=== PATIENT | female | born 1945 | race Caucasian/White ===

== ENCOUNTER 2017-05-07 08:14 | Outpatient (CLI) | payer MEDICARE, OTHER ==
--- NOTE | 2017-05-07 13:28 | DEXA Report ---
DEXA SCAN: 05/07/2017 CLINICAL INDICATION: Osteoporosis. TECHNIQUE: Dual energy x-ray absorptiometry (DXA) was performed on a KS12 system. Regions measured are the AP spine, femoral neck, and, if needed, forearm. COMPARISON: None. In accordance with the International Society for Clinical Densitometry (ISCD) guidelines, data from previous exams may be reanalyzed using current recommendations and techniques. This is done to allow a more accurate basis for comparison with the current study. FINDINGS Data for the lumbar spine is as follows: REGION BMD (g/cm/cm) T-SCORE Z-SCORE L1 0.731 -3.3 -1.4 L2 0.756 -3.7 -1.8 L3 0.807 -3.3 -1.4 L4 0.882 -2.7 -0.7 TOTAL 0.800 -3.2 -1.2 NOTE: All evaluable vertebrae are used for classification. Data for the hip is as follows: REGION BMD (g/cm/cm) T-SCORE Z-SCORE Neck 0.640 -2.9 -0.9 TOTAL 0.716 -2.3 -0.5 NOTE: The femoral neck or total proximal femur, whichever is lowest, is used for classification. IMPRESSION: THE WHO CLASSIFICATION BASED ON THE INTERNATIONAL REFERENCE STANDARD IS OSTEOPOROSIS. FRACTURE RISK IS HIGH. RECOMMENDATION: Patients with diagnosis of osteoporosis or osteopenia should have regular bone mineral density assessment. For those eligible for Medicare, routine testing is allowed once every 2 years. Testing frequency can be increased for patients who have rapidly progressing disease or for those who are receiving medical therapy to restore bone mass. COMMENT: World Health Organization (WHO) definitions for osteoporosis and osteopenia: NORMAL BMD: T-score at -1.0 or higher, fracture risk is low. OSTEOPENIA BMD: T-score between -1.0 and -2.5, fracture risk is increased. OSTEOPOROSIS BMD: T-score at -2.5 or lower, fracture risk high. National Osteoporosis Foundation recommends: 1. Obtain adequate dietary calcium (at least 1200 mg per day) and vitamin D (400 -800 international units per day). 2. Participate, as appropriate, in regular weightbearing and muscle- strengthening exercise. 3. Avoid tobacco use and reduce alcohol and caffeine intake. 4. For more detailed information see the website at www.NOF.org. MTDD
== END 2017-05-07 08:15 | disposition home or self-care (01) ==
LOC: DI 08:14
PROVIDERS: ATTEND Internal Medicine Rheumatology
DX: M81.0 Age-related osteoporosis without current pathological fracture (principal)
CPT/HCPCS: 77080

== ENCOUNTER 2017-05-24 15:13 | Outpatient (CLI) | payer MEDICARE, OTHER ==
--- NOTE | 2017-05-26 17:34 | Mammography Report ---
DIGITAL SCREENING MAMMOGRAM: 05/24/2017 CLINICAL INDICATION: A 71-year-old with history of late childbearing, family history of breast cance r for screening. COMPARISON: 04/2016, 03/2015, 01/2014, 12/2012, 10/2011, 10/2010, 10/2009. TECHNIQUE: Routine CC and MLO projections were obtained of the breasts. FINDINGS: Scattered fibroglandular tissue is present within the breasts. There are no dominant mass es, suspicious microcalcifications, or secondary signs of malignancy. In comparison to the previous studies, there are no significant changes. ASSESSMENT: NO MAMMOGRAPHIC EVIDENCE OF MALIGNANCY. NO SIGNIFICANT INTERVAL CHANGES. RECOMMENDATION: Screening mammography is recommended annually. BIRADS category 1 - negative. STANDARD QUALIFYING STATEMENTS 1. This examination was reviewed with the aid of Computed-Aided Detection (CAD). 2. A negative or benign imaging report should not delay biopsy if clinically suspicious findings are present. Consider surgical consultation if warranted. More than 5% of cancers are not identified b y imaging. 3. Dense breasts may obscure an underlying neoplasm. JOB #: [id number] EXT JOB #:[id number]
== END 2017-05-24 15:14 | disposition home or self-care (01) ==
LOC: DI 15:13
PROVIDERS: ATTEND Internal Medicine
DX: Z12.31 Encounter for screening mammogram for malignant neoplasm of breast (principal); Z80.3 Family history of malignant neoplasm of breast
CPT/HCPCS: 77067

== ENCOUNTER 2017-05-25 08:09 | Outpatient (CLI) | payer MEDICARE, OTHER ==
[2017-05-25 08:51] LABS: BASOPHILS # (AUTO) 0.1 10^3/uL (0.0-0.1); BASOPHILS % (AUTO) 2.1 %; EOSINOPHILS # (AUTO) 0.1 10^3/uL (0.0-0.7); EOSINOPHILS % (AUTO) 4.1 %; HGB - HEMOGLOBIN 12.8 g/dL (12.0-16.0); LYMPHOCYTES # (AUTO) 0.9 10^3/uL (1.5-3.5); LYMPHOCYTES % (AUTO) 24.6 %; MEAN CORPUSCULAR HEMOGLOBIN 31.2 pg (27.0-31.0); MEAN CORPUSCULAR HGB CONC 33.7 g/dL (32.0-36.0); MEAN CORPUSCULAR VOLUME 92.8 fL (81.0-99.0); MEAN PLATELET VOLUME 8.6 fL (7.9-10.8); MONOCYTES # (AUTO) 0.3 10^3/uL (0.0-1.0); MONOCYTES % (AUTO) 7.6 %; NEUTROPHILS # (AUTO) 2.2 10^3/uL (1.5-6.6); NEUTROPHILS % (AUTO) 61.6 %; RED CELL DISTRIBUTION WIDTH 12.8 % (12.0-15.0); UNCORRECTED WHITE BLOOD COUNT 3.6 x10^3/uL; WHITE BLOOD COUNT 3.6 x10^3/uL (4.8-10.8)
[2017-05-25 09:25] LABS: ALBUMIN/GLOBULIN RATIO 1.3 (1.0-2.2); BILIRUBIN,TOTAL 0.6 mg/dL (0.2-1.0); BUN - BLOOD UREA NITROGEN 15 mg/dL (6-20); CALCIUM 8.8 mg/dL (8.5-10.3); CARBON DIOXIDE - CO2 27 mmol/L (21-32); CHLORIDE 102 mmol/L (101-111); CHOL/HDL RATIO 2.5 (<4.4); CHOLESTEROL 180 mg/dL; CREATININE 0.6 mg/dL (0.4-1.0); GFR - MDRD 98 (>89); GLUCOSE 89 mg/dL (70-100); HDL CHOLESTEROL 71 mg/dL; LDL/HDL RATIO 1.4 (<4.4); POTASSIUM 3.9 mmol/L (3.5-5.0); SODIUM 137 mmol/L (135-145); TOTAL PROTEIN 6.7 g/dL (6.7-8.2); TRIGLYCERIDES 61 mg/dL; VLDL CHOLESTEROL 12 mg/dL
== END 2017-05-25 08:10 | disposition home or self-care (01) ==
LOC: LAB 08:09
PROVIDERS: ATTEND Internal Medicine
DX: Z00.00 Encounter for general adult medical examination without abnormal findings (principal); G20 Parkinson's disease; M81.0 Age-related osteoporosis without current pathological fracture; D72.819 Decreased white blood cell count, unspecified; Z79.899 Other long term (current) drug therapy
CPT/HCPCS: 36415; 80053; 80061; 82306; 84443; 85025

== ENCOUNTER 2017-11-29 07:58 | Outpatient (CLI) | payer MEDICARE, OTHER ==
[2017-11-29 08:28] LABS: CREATININE 0.6 mg/dL (0.4-1.0)
== END 2017-11-29 07:59 | disposition home or self-care (01) ==
LOC: LAB 07:58
PROVIDERS: ATTEND Physical Medicine & Rehabilitation
DX: Z01.818 Encounter for other preprocedural examination (principal); M54.5 Low back pain
CPT/HCPCS: 36415; 82565; 84520

== ENCOUNTER 2017-12-01 07:47 | Outpatient (CLI) | payer MEDICARE, OTHER ==
[~2017-12-01 07:47] MED LIST: GADOBUTROL 7.5 MMOL/7.5 ML VIAL ONE
[2017-12-01] MEDS ORDERED: GADOBUTROL 7.5 MMOL/7.5 ML VIAL IVP ONE (08:29)
--- NOTE | 2017-12-01 10:59 | MRI Preliminary Report ---
Exam: MRI LUMBAR SPINE W/WO IMPRESSION: 1. Conus terminates at T12-L1 which is normal. 8 degrees of levoscoliosis between L1-L2 and L4-L5. No listhesis. 2. L2-L3 is normal. 3. L3-L4 shows broad-based disk bulge and annular tear. Some disk dehydration and some hypertrophic f acets. Mild central stenosis. No foraminal narrowing. 4. L4-L5 shows mild broad-based bulge, prominent facets. Bilateral facet joint effusions and mild rosita tral stenosis. Mild bilateral foraminal stenosis. 5. L5-S1 shows disk space height loss. Previous left-sided hemilaminectomy without evidence for recur rent or residual disk disease. No central stenosis. Fdau-ir-hjnrabim bilateral foraminal stenosis. Comment: The following findings are so common in adults without low back pain that while we report th eir presence, they must be interpreted with caution and in the context of the clinical situation. (Re corey Mccarty et al, Spine 2001) Prevalence of findings in patients without low back pain: Disk degeneration (any evidence): 92% Disk desiccation/T2 signal loss: 83% Disk height loss: 56% Disk bulge: 64% Disk protrusion: 32% Annular tear/high intensity zone: 38% RADIA SITE ID: [id number]
--- NOTE | 2017-12-01 11:12 | MRI Report ---
EXAM: MRI LUMBAR SPINE WITHOUT AND WITH CONTRAST EXAM DATE: 12/01/2017 08:35 AM. CLINICAL HISTORY: Low back pain at multiple sites. COMPARISONS: None. TECHNIQUE: Multiplanar, multisequence T1-weighted and fluid-sensitive sequences of the lumbar spine f rom T12 to S1 before and after administration of intravenous contrast. Other: None. IV contrast: 6ML GADAVIST. FINDINGS: Spinal Cord: The conus terminates at T12-L1. The conus medullaris and cauda equina are unremarkable. Alignment: 8 degrees of levoscoliosis between L1-L2 and L4-L5. No listhesis. Bone Marrow: Five jvd-dyz-cwwjknw lumbar vertebral bodies are assumed. No gross fractures or bone les ions. No bone marrow edema or abnormal enhancement. Disk Levels/Facets: T12-L1: Unremarkable. L1-L2: Unremarkable. L2-L3: Unremarkable. L3-L4: Broad-based disk bulge, annular tear. Disk dehydration. Somewhat hypertrophic facets. Mild rosita tral stenosis. Neural foraminal narrowing. L4-L5: Broad-based disk bulge is seen. Prominent facets. Hypertrophic ligamentum flavum. Bilateral fa cet joint effusions. Mild central stenosis. Mild bilateral foraminal stenosis. L5-S1: Disk space height loss, evidence for previous left-sided laminectomy. No evidence for recurren t or residual disk disease on the basis of this test. No central stenosis. Mild to moderate bilateral foraminal stenosis. Spinal Canal: No enhancing masses within the spinal canal. No epidural abscess. Musculature: Moderate to severe fatty atrophy of the multifidus muscle is seen. Other: The visualized retroperitoneum is unremarkable. IMPRESSION: 1. Conus terminates at T12-L1 which is normal. 8 degrees of levoscoliosis between L1-L2 and L4-L5. No listhesis. L2-L3 is normal. 3. L3-L4 shows broad-based disk bulge and annular tear. Some disk dehydration and some hypertrophic f acets. Mild central stenosis. Neural foraminal narrowing. 4. L4-L5 shows mild broad-based bulge, prominent facets. Bilateral facet joint effusions and mild rosita tral stenosis. Mild bilateral foraminal stenosis. 5. L5-S1 shows disk space height loss. Previous left-sided hemilaminectomy without evidence for recur rent or residual disk disease. No central stenosis. Mild to moderate bilateral foraminal stenosis. Comment: The following findings are so common in adults without low back pain that while we report th eir presence, they must be interpreted with caution and in the context of the clinical situation. (Re corey Mccarty et al, Spine 2001) Prevalence of findings in patients without low back pain: Disk degeneration (any evidence): 92% Disk desiccation/T2 signal loss: 83% Disk height loss: 56% Disk bulge: 64% Disk protrusion: 32% Annular tear/high intensity zone: 38% RADIA Referring Provider Line: [phone] SITE ID: [id number]
== END 2017-12-01 07:48 | disposition home or self-care (01) ==
LOC: DI 07:47
PROVIDERS: ATTEND Physical Medicine & Rehabilitation
DX: M51.36 Other intervertebral disc degeneration, lumbar region (principal); M51.37 Other intervertebral disc degeneration, lumbosacral region; M41.86 Other forms of scoliosis, lumbar region; M25.48 Effusion, other site
CPT/HCPCS: 72158; A9585

== ENCOUNTER 2018-05-31 08:08 | Outpatient (CLI) | payer MEDICARE, OTHER ==
[2018-05-31 08:34] LABS: BASOPHILS % (AUTO) 1.3 %; EOSINOPHILS # (AUTO) 0.2 10^3/uL (0.0-0.7); HGB - HEMOGLOBIN 13.5 g/dL (12.0-16.0); LYMPHOCYTES # (AUTO) 0.6 10^3/uL (1.5-3.5); LYMPHOCYTES % (AUTO) 19.8 %; MEAN CORPUSCULAR HEMOGLOBIN 31.7 pg (27.0-31.0); MEAN CORPUSCULAR HGB CONC 33.9 g/dL (32.0-36.0); MEAN CORPUSCULAR VOLUME 93.2 fL (81.0-99.0); MEAN PLATELET VOLUME 9.5 fL (7.9-10.8); MONOCYTES # (AUTO) 0.2 10^3/uL (0.0-1.0); MONOCYTES % (AUTO) 7.8 %; NEUTROPHILS # (AUTO) 1.9 10^3/uL (1.5-6.6); NEUTROPHILS % (AUTO) 65.1 %; PLT - PLATELET COUNT 174 10^3/uL (130-450); RED BLOOD COUNT 4.28 10^6/uL (4.20-5.40); RED CELL DISTRIBUTION WIDTH 12.6 % (12.0-15.0); WHITE BLOOD COUNT 2.9 x10^3/uL (4.8-10.8)
[2018-05-31 08:57] LABS: ALBUMIN 4.3 g/dL (3.2-5.5); ALBUMIN/GLOBULIN RATIO 1.6 (1.0-2.2); ALKALINE PHOSPHATASE 64 IU/L (42-121); ALT ALANINE AMINOTRANSFERASE < 10 IU/L (10-60); AST ASPARTATE AMINOTRANSFERASE 22 IU/L (10-42); BILIRUBIN,TOTAL 0.8 mg/dL (0.2-1.0); BUN - BLOOD UREA NITROGEN 15 mg/dL (6-20); CALCIUM 8.7 mg/dL (8.5-10.3); CARBON DIOXIDE - CO2 28 mmol/L (21-32); CHLORIDE 102 mmol/L (101-111); CHOL/HDL RATIO 2.3 (<4.4); CHOLESTEROL 182 mg/dL; CREATININE 0.5 mg/dL (0.4-1.0); GFR - MDRD 121 (>89); GLUCOSE 89 mg/dL (70-100); HDL CHOLESTEROL 78 mg/dL; LDL CHOLESTEROL,CALCULATED 92 mg/dL; LDL/HDL RATIO 1.2 (<4.4); SODIUM 137 mmol/L (135-145); VLDL CHOLESTEROL 12 mg/dL
[2018-05-31 09:17] LABS: PLATELET ESTIMATE, MANUAL NORMAL (130-450,000) (NORMAL); PLATELET MORPHOLOGY 1+ GIANT PLATELETS (NORMAL); RBC MORPHOLOGY (MULTIPLE) NORMAL APPEARANCE (NORMAL)
== END 2018-05-31 08:09 | disposition home or self-care (01) ==
LOC: LAB 08:08
PROVIDERS: ATTEND Internal Medicine
DX: G20 Parkinson's disease (principal); Z79.899 Other long term (current) drug therapy; D72.819 Decreased white blood cell count, unspecified; M81.0 Age-related osteoporosis without current pathological fracture; Z13.6 Encounter for screening for cardiovascular disorders
CPT/HCPCS: 36415; 80053; 80061; 82306; 83721; 84443; 85025

== ENCOUNTER 2018-06-03 10:01 | Outpatient (CLI) | payer MEDICARE, OTHER ==
--- NOTE | 2018-06-06 09:11 | Mammography Report ---
Reason: SCREENING MAMMO Procedure Date: 06/03/2018 Accession Number: [id number] / [id number] Procedure: [facility] - Screening Mammo w/Gavino CPT Code: FULL RESULT: EXAM: Screening Mammo w/Gavino DATE: 06/03/2018 10:29 AM CLINICAL HISTORY: Screening encounter. History of late childbearing. Family history of breast cancer in a sister at the age of 70 and 3 aunts at various ages. TECHNIQUE: Bilateral CC and MLO views were obtained. COMPARISON: 05/24/2017 through 02/05/2014. FINDINGS: The breasts demonstrate scattered fibroglandular densities bilaterally. Asymmetric prominence of left breast tissue is stable in configuration dating back to 2013, typically benign. No suspicious masses, clustered microcalcifications, or regions of architectural distortion are identified. IMPRESSION: Benign findings RECOMMENDATION: Routine annual screening unless otherwise clinically indicated. BIRADS CATEGORY 2: Benign findings STANDARD QUALIFYING STATEMENTS: 1. This examination was not reviewed with the aid of Computer-Aided Detection (CAD). 2. A negative or benign imaging report should not preclude biopsy if clinically suspicious findings are present. 3. Dense breasts may obscure an underlying neoplasm. 4. This examination was reviewed with the aid of 3D breast imaging (tomosynthesis).
== END 2018-06-03 10:02 | disposition home or self-care (01) ==
LOC: DI 10:01
PROVIDERS: ATTEND Internal Medicine
DX: Z12.31 Encounter for screening mammogram for malignant neoplasm of breast (principal); Z80.3 Family history of malignant neoplasm of breast
CPT/HCPCS: 77063; 77067

== ENCOUNTER 2019-01-27 | Outpatient (CLI) | payer MEDICARE, OTHER | END 2019-01-27 10:46 | disposition home or self-care (01) ==

== ENCOUNTER 2019-06-12 14:19 | Outpatient (CLI) | payer MEDICARE, OTHER ==
--- NOTE | 2019-06-13 13:46 | Mammography Report ---
Reason: ROUTINE MAMMO Procedure Date: 06/12/2019 Accession Number: [id number] / [id number] Procedure: MACI - Screening Mammo w/Gavino CPT Code: Final Report FULL RESULT: EXAM: Screening Mammo w/Gavino DATE: 06/12/2019 2:47 PM CLINICAL HISTORY: Routine screening. Sister with breast cancer. Late childbearing. TECHNIQUE: (B) - Bilateral CC and MLO views were obtained. COMPARISON: 06/03/2018, 05/24/2017, 04/29/2016, 04/19/2015, 02/05/2014, 01/02/2013, 11/26/2011, 11/19/2010 and 11/11/2009. PARENCHYMAL PATTERN: (A) - The breasts demonstrate scattered fibroglandular densities bilaterally. FINDINGS: No significant interval change. There are no suspicious masses, calcifications, or areas of distortion. IMPRESSION: Negative examination. BI-RADS category 1. RECOMMENDATION: (ANNUAL) - Recommend routine annual screening mammography. BI-RADS CATEGORY: (1) - Negative. STANDARD QUALIFYING STATEMENTS: 1. This examination was not reviewed with the aid of Computer-Aided Detection (CAD). 2. A negative or benign imaging report should not preclude biopsy if clinically suspicious findings are present. 3. Dense breasts may obscure an underlying neoplasm. 4. This examination was reviewed with the aid of 3D breast imaging (tomosynthesis).
== END 2019-06-12 14:20 | disposition home or self-care (01) ==
LOC: DI 14:19
PROVIDERS: ATTEND Internal Medicine
DX: Z12.31 Encounter for screening mammogram for malignant neoplasm of breast (principal); Z80.3 Family history of malignant neoplasm of breast
CPT/HCPCS: 77063; 77067

== ENCOUNTER 2019-12-14 09:57 | Outpatient (CLI) | payer MEDICARE, OTHER ==
[2019-12-14] MEDS ORDERED: IOVERSOL 320 100 ML VIAL IVP ONE ×2 (10:04→16:58)
[2019-12-14] MEDS ORDERED: IOVERSOL 320 50 ML VIAL ONE (10:05)
[2019-12-14 10:20] LABS: CREATININE 0.6 mg/dL (0.4-1.0)
--- NOTE | 2019-12-14 11:52 | CT Report ---
PROCEDURE: Abdomen/Pelvis W INDICATIONS: INGUINAL MASS CONTRAST: IV CONTRAST: Optiray 320 ml: 100 PO CONTRAST: Optiray 320 ml50 TECHNIQUE: After the administration of oral and intravenous contrast, 5 mm thick sections acquired from the diap hragms to the symphysis. 5 mm thick coronal and sagittal reformats were acquired. For radiation dos e reduction, the following was used: automated exposure control, adjustment of mA and/or kV accordin g to patient size. COMPARISON: CT abdomen and pelvis 12/20/2013. FINDINGS: Image quality: Excellent. ABDOMEN: Lung bases: Bibasilar atelectasis and scarring. No pleural effusion. Heart size is normal. Solid organs: Liver and spleen are normal in size and enhancement. Calcified granuloma in the spleen . Elongated gallbladder is not distended. No calcified gallstones seen. Biliary system is non dilate d. Pancreas enhances normally. No adrenal nodules. Kidneys demonstrate normal size and enhancement , without hydronephrosis. Peritoneum and bowel: Bowel loops demonstrate normal wall thickness and caliber. Prominent stool th roughout the colon. Appendix is normal. No free fluid or air. Nodes and vessels: No retroperitoneal or mesenteric adenopathy by size criteria. Aorta and inferior vena cava are normal in size. Miscellaneous: No ventral hernias. PELVIS: Genitourinary: Bladder wall thickness is normal. No free fluid. Postmenopausal uterus. Probable pelv ic floor laxity. Miscellaneous: BB marker overlies the left groin. There is a subtle area of stranding/echogenic fat i n the subcutaneous tissues which measures approximately 1.8 x 1.4 cm, (). This is asymmetric comp ared to the contralateral side. This is located medial to the common femoral vein. This is not defini tely seen on the CT from 2013. There may be a fascial defect seen on the coronal images, (12/08). No f luid collection. No inguinal hernias identified. No enlarged adenopathy. Bones: No suspicious bony lesions. Scoliosis. No vertebral body compression fractures. L4-L5 pedicl e screw fixation and intervertebral body spacer. Left L4 hemilaminectomy. There is mild anterolisthes is of L4 on L5. IMPRESSION: 1. Suspect fat-containing left femoral hernia corresponding to the palpable abnormality in the left g roin. -If clinically indicated this could be confirmed with dedicated ultrasound with Valsalva. 2. No fluid collection or enlarged adenopathy. 3. No intra-abdominal free fluid. 4. Prominent stool throughout the colon. Reviewed by: Raj Davison MD on 12/14/2019 11:51 AM PDT Approved by: Raj Davison MD on 12/14/2019 11:51 AM PDT Station ID: [id number]
[2019-12-14] MEDS ORDERED: IOVERSOL 320 50 ML VIAL PO ONE (16:57)
== END 2019-12-14 09:58 | disposition home or self-care (01) ==
LOC: DI 09:57
PROVIDERS: ATTEND Surgery
DX: R19.00 Intra-abdominal and pelvic swelling, mass and lump, unspecified site (principal)
CPT/HCPCS: 36415; 74177; 82565; Q9967

== ENCOUNTER 2020-01-19 11:48 | Outpatient (CLI) | payer MEDICARE, OTHER | END 2020-01-19 11:49 | disposition home or self-care (01) | LOC: LAB 11:48 | PROVIDERS: ATTEND Surgery | DX: Z01.812 Encounter for preprocedural laboratory examination (principal); K41.90 Unilateral femoral hernia, without obstruction or gangrene, not specified as recurrent; Z20.828 Contact with and (suspected) exposure to other viral communicable diseases ==

== ENCOUNTER 2020-01-22 08:10 | Day surgery (SDC) | payer MEDICARE, OTHER ==
[2020-01-22] MEDS ORDERED: PROPOFOL 200 MG/20 ML VIAL IVP ONE (08:11)
[2020-01-22] MEDS ORDERED: DEXAMETHASONE 4 MG/ML VIAL IVP ONE (08:11)
[2020-01-22] MEDS ORDERED: fentaNYL 100 MCG/2 ML VIAL IVP ONE (08:11)
[2020-01-22] MEDS ORDERED: LIDOCAINE-MPF 2% 5 ML VIAL IM ONE (08:11)
[2020-01-22] MEDS ORDERED: PHENYLEPHRINE 50 MG/5 ML VIAL IV ONE (08:11)
[2020-01-22] MEDS ORDERED: ONDANSETRON 4 MG/2 ML VIAL IVP ONE (08:11)
[2020-01-22] MEDS ORDERED: LACTATED RINGERS 1,000 ML IV ONE (08:34)
[2020-01-22] MEDS ORDERED: CEFAZOLIN SODIUM IN 0.9 % NACL 2 GM/100 ML BAG IV ONE (08:47)
[2020-01-22] MEDS ORDERED: ceFAZolin 1 GM VIAL ONE (08:54)
[2020-01-22] MEDS ORDERED: LIDOCAINE 1%-EPI 1:100000 20 ML MDV ONE (08:54)
[2020-01-22] MEDS ORDERED: BUPIVACAINE 0.5% PF 30 ML VIAL ONE (08:54)
--- NOTE | 2020-01-22 09:29 | ANESTHESIA ---
Pre-Anesthesia VS, & Labs - Diagnosis L femoral hernia - Procedure L femoral hernia repair Vital Signs: Temp Pulse Resp BP Pulse Ox 36.6 C 85 18 107/52 L 97 01/22/20 08:29 01/22/20 08:29 01/22/20 08:29 01/22/20 08:29 01/22/20 08:29 Height 5 ft 4 in Weight (kg) 78 kg Body Mass Index 20.9 - NPO >8 hours - Is Patient ?: No Home Medications and Allergies Home Medications: Ambulatory Orders Carbidopa/Levodopa [Carbidopa-Levodopa 25-100 Tab] 1 each PO QID 01/15/20 Cholecalciferol (Vitamin D3) [Vitamin D3] 25 mcg PO DAILY 01/15/20 Docusate Sodium [Dulcolax Stool Softener] 100 mg PO ONCE 01/15/20 polyethylene glycoL 3350 [Miralax] 17 gm PO DAILY 01/15/20 Cyanocobalamin (Vitamin B-12) [Vitamin B-12] 250 mcg PO DAILY 01/26/13 Rasagiline [Azilect] 1 mg PO DAILY 01/26/13 Ropinirole HCl [Requip Xl] 8 mg PO DAILY 01/26/13 Carbidopa/Levodopa [Carbidopa-Levodopa 25-100 Tab] 1 each PO QID 01/15/20 Cholecalciferol (Vitamin D3) [Vitamin D3] 25 mcg PO DAILY 01/15/20 Docusate Sodium [Dulcolax Stool Softener] 100 mg PO ONCE 01/15/20 polyethylene glycoL 3350 [Miralax] 17 gm PO DAILY 01/15/20 Allergies/Adverse Reactions: Allergies Allergy/AdvReac Type Severity Reaction Status Date / Time No Known Drug Allergies Allergy Verified 01/26/13 09:15 Anes History & Medical History - Anesthetic History Anesthesia Complications: reports: No previous complications Family history of Anesthesia Complications: Denies Family history of Malignant Hyperthermia: Denies - Medical History Cardiovascular: reports: None Pulmonary: reports: None Gastrointestinal: reports: Hiatal hernia, Other Urinary: reports: None Musculoskeletal: reports: None Endocrine/Autoimmune: reports: None Skin: reports: Other - Surgical History General: Colonoscopy, Other Eyes Ears Nose Throat (EENT): Cataracts Orthopedic: Spine surgery, Other Exam General: Alert, Oriented x3, Cooperative Dental: WNL Mouth Opening: Greater than 4 Fingerbreadths Neck Mobility: Normal Mallampati classification: II Thyromental Distance: greater than 6 cm Respiratory: Lungs clear, Normal breath sounds, No respiratory distress Cardiovascular: Regular rate Neurological: Normal speech Mental/Cognitive Status: Alert/Oriented X3, Normal for patient Cognitive Status: Within normal limits Plan Anesthesia Type: General Consent for Procedure(s) Verified and Reviewed: Yes Code Status: Attempt Resuscitation ASA classification: 2-Mild systemic disease Is this case an emergency?: No
[2020-01-22] MEDS ORDERED: ceFAZolin 1 GM VIAL IR ONE (11:05)
[2020-01-22] MEDS ORDERED: LIDOCAINE 1%-EPI 1:100000 20 ML MDV SUBQ ONE ×2 (11:06)
[2020-01-22] MEDS ORDERED: BUPIVACAINE 0.5% PF 30 ML VIAL SUBQ ONE ×2 (11:06)
--- NOTE | 2020-01-22 12:09 | OPERATIVE REPORT ---
Operative Report - General Procedure Date: 01/22/20 Planned Procedure: Repair left femoral hernia Pre-Op Diagnosis: Symptomatic left femoral hernia Procedure Performed: Repair of left femoral hernia Post Op Diagnosis: Symptomatic left femoral hernia - Procedure Note Primary Surgeon: Ebony Anesthesia Technique: General LMA, Local Estimated Blood Loss (mL): 10 Indications: Symptomatic left femoral hernia Findings: Left femoral hernia containing a knuckle of preperitoneal fat Complications: None apparent - Other Other Information/Narrative: After obtaining informed consent, the patient is brought to the operating room and placed in the supine position on the operating table. Following successful induction of general anesthesia, appropriate padding of all bony prominences, and placement of appropriate monitors, the left groin was prepped and draped in the standard surgical fashion. A timeout was held per scope protocol. All elements of the surgical safety checklist were followed before, during, and after the procedure. We began the procedure by infiltrating a mixture of local anesthetics medial to the anterior superior iliac spine to create a field block. Once this was done we anesthetized a site for the incision in the left lower quadrant over the palpable hernia defect. An incision was created here and then carried through the skin and subcutaneous tissue to reveal a visible and palpable hernia sac.The hernia sac was a knuckle of viable omentum. It was carefully freed from the surrounding subcutaneous tissue and eased back into the abdominal cavity. The defect was medial to the femoral vein which was easily visualized.We elected to repair this defect with a PHS implant. Soft tissue was carefully placed around the femoral vein to be sure it would not be impacted by the repair. The mesh was then deployed medial to the femoral vein being sure once again that the vein was covered with copious soft tissue consisting of preperitoneal fat.The anterior leaflet was then trimmed to fit the space. It was sewn to the inguinal ligament superiorly.It was then tacked to the soft tissue in a circumferential fashion being sure not to compromise the vein.Irrigated with warm Ancef containing solution. Subcutaneous tissue was closed with a running Vicryl suture and Monocryl stitches were placed in the skin. All sponge, needle, and instrument counts were correct at the conclusion of the case. Patient was let awaken anesthesia without difficulty and taken to the postanesthesia care unit in good condition.
[2020-01-22] MEDS ORDERED: ACETAMINOPHEN 325 MG TABLET PO PRN (12:13)
[2020-01-22] MEDS ORDERED: IBUPROFEN 600 MG TABLET PO PRN (12:13)
[2020-01-22] MEDS ORDERED: ONDANSETRON 4 MG/2 ML VIAL IVP PRN (12:13)
[2020-01-22] MEDS ORDERED: oxyCODONE 5 MG TABLET PO PRN (12:13)
[2020-01-22] MEDS ORDERED: ACETAMINOPHEN 1,000 MG/100 ML 100 ML IV ONE (12:25)
[2020-01-22 13:27] VITALS: BP 136/67
== END 2020-01-22 08:11 | disposition home or self-care (01) ==
LOC: SDS 08:10
PROVIDERS: ATTEND Surgery
PROC: 0YU80JZ Supplement Left Femoral Region with Synthetic Substitute, Open Approach (ICD-10-PCS; principal; 2020-01-22 09:15)
DX: K41.90 Unilateral femoral hernia, without obstruction or gangrene, not specified as recurrent (principal)
CPT/HCPCS: 49550; C1781; J0131; J0690; J7120

== ENCOUNTER 2020-10-01 14:48 | Outpatient (CLI) | payer MEDICARE, OTHER ==
--- NOTE | 2020-10-02 09:37 | Mammography Report ---
BILATERAL DIGITAL SCREENING MAMMOGRAM 3D/2D: 10/01/2020 CLINICAL: Routine screening. Comparison is made to exams dated: 06/12/2019 mammogram, 06/03/2018 mammogram, 05/24/2017 mammogram, and 04/29/2016 mammogram - [facility]. There are scattered fibroglandular elements in both breasts. No significant masses, calcifications, or other findings are seen in either breast. There has been no significant interval change. IMPRESSION: NEGATIVE There is no mammographic evidence of malignancy. A 1 year screening mammogram is recommended. This exam was interpreted at Station ID: [id number]. NOTE: For mammograms, a report in lay terms will be sent to the patient. Approximately 15% of breast malignancies will not be visualized mammographically. In the management of a palpable breast mass, a negative mammogram must not discourage biopsy of a clinically suspicious lesion. Electronically Signed By: Jacky Jain M.D. aty/penrad:10/01/2020 17:00:03 ACR BI-RADS Category 1: Negative 3341F PARENCHYMAL PATTERN: (A) - The breast(s) demonstrate(s) scattered fibroglandular densities. BI-RADS CATEGORY: (1) - 1 RECOMMENDATION: (ANNUAL) - Recommend routine annual screening mammography. [id number] 1 year screening LATERALITY: (B)
== END 2020-10-01 14:49 | disposition home or self-care (01) ==
LOC: DI 14:48
PROVIDERS: ATTEND Internal Medicine
DX: Z12.31 Encounter for screening mammogram for malignant neoplasm of breast (principal)

== ENCOUNTER 2020-12-09 12:50 | Outpatient (CLI) | payer MEDICARE, OTHER ==
[2020-12-09] MEDS ORDERED: IOVERSOL 320 100 ML VIAL IVP ONE ×2 (13:10→16:56)
[2020-12-09] MEDS ORDERED: IOPAMIDOL-300 50 ML VIAL ONE (13:10)
[2020-12-09 13:36] LABS: CREATININE 0.5 mg/dL (0.4-1.0)
--- NOTE | 2020-12-09 15:24 | CT Report ---
PROCEDURE: Abdomen/Pelvis W INDICATIONS: LLQ PAIN CONTRAST: IV CONTRAST: Optiray 320 ml: 100 PO CONTRAST: Isovue 300 ml50 TECHNIQUE: After the administration of intravenous and oral contrast, 5 mm thick sections acquired from the diap hragms to the symphysis. 5 mm thick coronal and sagittal reformats were acquired. For radiation dos e reduction, the following was used: automated exposure control, adjustment of mA and/or kV accordin g to patient size. COMPARISON: 12/14/2019 FINDINGS: Image quality: Excellent. ABDOMEN: Lung bases: Lung bases are clear. Heart size is normal. Bibasilar platelike atelectasis. Solid organs: Liver and spleen are normal in size and enhancement. Multiple calcified granulomas no daryl in the spleen. Gallbladder unremarkable. Biliary system is non dilated. Pancreas enhances robyn lly. No adrenal nodules. Kidneys demonstrate normal size and enhancement, without hydronephrosis. Peritoneum and bowel: Bowel loops demonstrate normal wall thickness and caliber. No free fluid or a ir. Moderate fecal debris present throughout the colon. Nodes and vessels: No retroperitoneal or mesenteric adenopathy by size criteria. Aorta and inferior vena cava are normal in size. Miscellaneous: No ventral hernias. PELVIS: Genitourinary: Bladder wall thickness is normal. Bones: No suspicious bony lesions. No vertebral body compression fractures. Postoperative granulat ion tissue noted in the right inguinal subcutaneous fat consistent with prior hernia repair. No evide nce of recurrent or residual hernia. L4-5 interbody spacer unchanged in position with a left L4 hemil aminectomy and posterior anthony and screw instrumentation noted unchanged. Mild anterior listhesis noted stable IMPRESSION: 1. No acute CT abdomen or pelvic findings. 2. Postoperative findings from prior left femoral hernia repair. No recurrent or residual hernia. 3. L4-5 interbody fusion with posterior instrumentation, stable. Reviewed by: Antonio Lisa MD on 12/09/2020 2:22 PM AKDT Approved by: Antonio Lisa MD on 12/09/2020 2:22 PM AKDT Station ID: [id number]
[2020-12-09] MEDS ORDERED: IOPAMIDOL-300 50 ML VIAL PO ONE (16:55)
== END 2020-12-09 12:51 | disposition home or self-care (01) ==
LOC: DI 12:50
PROVIDERS: ATTEND Internal Medicine
DX: R10.32 Left lower quadrant pain (principal); Z98.1 Arthrodesis status
CPT/HCPCS: 36415; 74177; 82565; Q9967

== ENCOUNTER 2021-08-14 12:52 | Outpatient (CLI) | payer MEDICARE, OTHER ==
--- NOTE | 2021-08-14 16:27 | DEXA Report ---
PROCEDURE: Dexa Spine and/or Hip INDICATIONS: OSTEOPOROSIS TECHNIQUE: Dual energy x-ray absorptiometry (DXA) was performed on a [employer] System. Regions measur ed are the AP Spine, femoral neck, and if needed forearm. COMPARISON: 05/09/2019. FINDINGS: Lumbar Spine: Bone Mineral Density 0.777 g/cm/cm,T score -3.3. There is interval 1.6% increase in total lumbar s pine bone mineral density. Left Hip: Bone Mineral Density 0.749 g/cm/cm,T score -2.1. There is interval 5.2% increase in total left hip b one mineral density. Left Femoral Neck: Bone Mineral Density 0.674 g/cm/cm, T score -2.6. (T score greater or equal to -1.0: NORMAL) (T score from -1.1 to -2.4: OSTEOPENIA) (T score less than or equal to -2.5 to: OSTEOPOROSIS) Impression: Osteoporosis. Patients with diagnosis of osteoporosis or osteopenia should have regular bone mineral density assess ment. For those eligible for Medicare, routine testing is allowed once every 2 years. Testing frequ ency can be increased for patients who have rapidly progressing disease or for those who are receivin g medical therapy to restore bone mass. Reviewed by: Morales Thomas MD on 08/14/2021 4:25 PM PST Approved by: Morales Thomas MD on 08/14/2021 4:25 PM PST Station ID: [id number]
== END 2021-08-14 12:53 | disposition home or self-care (01) ==
LOC: DI 12:52
PROVIDERS: ATTEND Internal Medicine Rheumatology
DX: M81.0 Age-related osteoporosis without current pathological fracture (principal)

== ENCOUNTER 2021-12-30 08:10 | Outpatient (CLI) | payer MEDICARE, OTHER ==
[2021-12-30 08:37] LABS: BASOPHILS # (AUTO) 0.1 10^3/uL (0.0-0.1); BASOPHILS % (AUTO) 1.7 %; EOSINOPHILS # (AUTO) 0.3 10^3/uL (0.0-0.7); EOSINOPHILS % (AUTO) 7.3 %; HCT - HEMATOCRIT 40.5 % (37.0-47.0); HGB - HEMOGLOBIN 13.5 g/dL (12.0-16.0); LYMPHOCYTES # (AUTO) 1.1 10^3/uL (1.5-3.5); LYMPHOCYTES % (AUTO) 29.9 %; MEAN CORPUSCULAR HEMOGLOBIN 31.5 pg (27.0-31.0); MEAN CORPUSCULAR HGB CONC 33.3 g/dL (32.0-36.0); MEAN CORPUSCULAR VOLUME 94.4 fL (81.0-99.0); MONOCYTES # (AUTO) 0.4 10^3/uL (0.0-1.0); MONOCYTES % (AUTO) 10.1 %; NEUTROPHILS # (AUTO) 1.8 10^3/uL (1.5-6.6); NEUTROPHILS % (AUTO) 50.7 %; PLT - PLATELET COUNT 213 10^3/uL (130-450); RED BLOOD COUNT 4.29 10^6/uL (4.20-5.40); RED CELL DISTRIBUTION WIDTH 12.8 % (12.0-15.0); WHITE BLOOD COUNT 3.6 x10^3/uL (4.8-10.8)
[2021-12-30 09:02] LABS: ALBUMIN/GLOBULIN RATIO 1.3 (1.0-2.2); ALKALINE PHOSPHATASE 55 IU/L (42-121); ALT ALANINE AMINOTRANSFERASE < 10 IU/L (10-60); AST ASPARTATE AMINOTRANSFERASE 21 IU/L (10-42); BILIRUBIN,TOTAL 0.7 mg/dL (0.2-1.0); BUN - BLOOD UREA NITROGEN 16 mg/dL (6-20); CALCIUM 9.1 mg/dL (8.5-10.3); CARBON DIOXIDE - CO2 30 mmol/L (21-32); CHLORIDE 98 mmol/L (101-111); CHOL/HDL RATIO 2.2 (<4.4); CHOLESTEROL 179 mg/dL; CREATININE 0.5 mg/dL (0.4-1.0); GFR - MDRD 119 (>89); GLUCOSE 89 mg/dL (70-100); HDL CHOLESTEROL 82 mg/dL; LDL CHOLESTEROL,CALCULATED 88 mg/dL; LDL/HDL RATIO 1.1 (<4.4); POTASSIUM 4.1 mmol/L (3.5-5.0); SODIUM 134 mmol/L (135-145); TOTAL PROTEIN 7.2 g/dL (6.7-8.2); TRIGLYCERIDES 45 mg/dL; VLDL CHOLESTEROL 9 mg/dL
== END 2021-12-30 08:11 | disposition home or self-care (01) ==
LOC: LAB 08:10
PROVIDERS: ATTEND Internal Medicine
DX: M81.0 Age-related osteoporosis without current pathological fracture (principal); G20 Parkinson's disease; Z79.899 Other long term (current) drug therapy; D72.819 Decreased white blood cell count, unspecified
CPT/HCPCS: 36415; 80053; 80061; 82306; 83721; 84443; 85025

== ENCOUNTER 2023-02-01 13:43 | Outpatient (CLI) | payer MEDICARE, OTHER ==
--- NOTE | 2023-02-02 08:55 | Mammography Report ---
BILATERAL DIGITAL SCREENING MAMMOGRAM 3D/2D: 02/01/2023 CLINICAL: Routine screening. Comparison is made to exams dated: 01/29/2022 mammogram, 10/01/2020 mammogram, 06/12/2019 mammogram, 06/03/2018 mammogram, 05/24/2017 mammogram, and 04/29/2016 mammogram - [facility]. There are scattered areas of fibroglandular density in both breasts (category b / 25%-50% glandular t issue). No significant masses, calcifications, or other findings are seen in either breast. There has been no significant interval change. IMPRESSION: NEGATIVE There is no mammographic evidence of malignancy. A 1 year screening mammogram is recommended. Based on the Tyrer Cuzick model (a risk assessment model) the patients lifetime risk is 8.4% and her 10 year risk is 0.0%. According to the ACR, ACS, and NCCN guidelines, an annual breast MRI exam [place] g with mammogram is recommended if the patients lifetime risk is 20% or greater. This exam was interpreted at Station ID: [id number]. NOTE: For mammograms, a report in lay terms will be sent to the patient. Approximately 15% of breast malignancies will not be visualized mammographically. In the management of a palpable breast mass, a negative mammogram must not discourage biopsy of a clinically suspicious lesion. Electronically Signed By: Raj adam/ba:02/01/2023 17:49:11 letter sent: No_Letter ACR BI-RADS Category 1: Negative 3341F PARENCHYMAL PATTERN: (A) - The breast(s) demonstrate(s) scattered fibroglandular densities. BI-RADS CATEGORY: (1) - 1 Mammogram [id number] 1 year screening LATERALITY: (B)
== END 2023-02-01 13:44 | disposition home or self-care (01) ==
LOC: DI 13:43
PROVIDERS: ATTEND Internal Medicine
DX: Z12.31 Encounter for screening mammogram for malignant neoplasm of breast (principal)

== ENCOUNTER 2023-03-06 09:54 | Emergency (ER) | payer MEDICARE, OTHER ==
[2023-03-06 10:19] VITALS: BP 103/53; O2SAT 100
[2023-03-06 10:51] LABS: BILIRUBIN,URINE NEGATIVE (NEGATIVE); GLUCOSE, URINE (UA) NEGATIVE (NEGATIVE); KETONES,URINE (UA) TRACE mg/dL (NEGATIVE); LEUKOCYTE ESTERASE, URINE NEGATIVE (NEGATIVE); NITRITE,URINE NEGATIVE (NEGATIVE); OCCULT BLOOD,URINE LARGE (NEGATIVE); PH,URINE 5.5 PH (5.0-7.5); PROTEIN,URINE 100 mg/dL (NEGATIVE); UROBILINOGEN,URINE 1 (NORMAL) E.U./dL (NORMAL)
[2023-03-06 10:53] LABS: CLARITY,URINE TURBID (CLEAR)
[2023-03-06 10:55] LABS: BACTERIA,URINE Few /HPF (None Seen); RBC,URINE TNTC /HPF (0-5); SQUAMOUS EPITHELIAL CELL,UR FEW Squamous (<= Few)
--- NOTE | 2023-03-06 11:02 | ED Physician Documentation ---
PD HPI FEMALE - Stated complaint Stated Complaint: - Chief complaint Chief Complaint: UTI - History obtained from History obtained from: Patient - History of Present Illness Timing - onset: Today Timing - duration: Hours Timing - details: Gradual onset, Still present Associated symptoms: Dysuria, Urinary frequency, Hematuria Similar symptoms before: Diagnosis (UTI) Recently seen: Not recently seen - Additional information Additional information: Erica Long is a 77-year-old female with a history of Parkinson's disease that she has had for about 10 years. She is on some levodopa carbidopa and an MAO inhibitor. This morning she began experiencing urinary urgency frequency and dysuria similar to what she had previously with urinary tract infection. She has had some low back pain with this she denies any flank pain denies any nausea and denies any fever. Review of Systems Constitutional: denies: Fever Eyes: denies: Decreased vision Ears: denies: Ear pain Nose: denies: Congestion Throat: denies: Sore throat Cardiac: denies: Chest pain / pressure, Palpitations Respiratory: denies: Dyspnea, Cough GI: reports: Diarrhea. denies: Abdominal Pain, Nausea, Vomiting : reports: Dysuria, Frequency, Hematuria Skin: denies: Rash Musculoskeletal: reports: Back pain (low back pain). denies: Neck pain, Extremity pain Neurologic: denies: Generalized weakness, Focal weakness, Numbness PD PAST MEDICAL HISTORY - Past Medical History Past Medical History: Yes Cardiovascular: None Respiratory: None Neuro: Parkinson's Endocrine/Autoimmune: None GI: Hiatal hernia, Other : None HEENT: Chronic vision loss, Chronic hearing loss Psych: None Musculoskeletal: None Derm: Other - Past Surgical History Past Surgical History: Yes General: Colonoscopy, Other Ortho: Spine surgery, Other HEENT: Cataracts - Present Medications Home Medications: Ambulatory Orders Medication Instructions Recorded Confirmed Cyanocobalamin (Vitamin B-12) 250 mcg PO DAILY 01/26/13 01/22/20 [Vitamin B-12] Rasagiline [Azilect] 1 mg PO DAILY 01/26/13 01/22/20 Ropinirole HCl [Requip Xl] 8 mg PO DAILY 01/26/13 01/22/20 Carbidopa/Levodopa 1 each PO QID 01/15/20 01/22/20 [Carbidopa-Levodopa 25-100 Tab] Cholecalciferol (Vitamin D3) 25 mcg PO DAILY 01/15/20 01/22/20 [Vitamin D3] Docusate Sodium [Dulcolax Stool 100 mg PO ONCE 01/15/20 01/22/20 Softener] polyethylene glycoL 3350 [Miralax] 17 gm PO DAILY 01/15/20 01/22/20 Ondansetron Odt [Zofran Odt] 4 mg TL Q6H PRN #10 tablet 01/22/20 oxyCODONE [Roxicodone] 5 mg PO Q4-6H PRN #20 tablet 01/22/20 Sulfamethox/Trimeth 800/160 1 tablet PO BID 7 Days #14 tablet 03/06/23 [Bactrim Ds] - Allergies Allergies/Adverse Reactions: Allergies Allergy/AdvReac Type Severity Reaction Status Date / Time No Known Drug Allergies Allergy Verified 03/06/23 10:07 - Social History Does the pt smoke?: No Smoking Status: Never smoker Does the pt drink ETOH?: No Does the pt have substance abuse?: No - Immunizations Immunizations are current?: Yes - POLST Patient has POLST: No PD ED PE NORMAL - Vitals Vital signs reviewed: Yes (normal ) - HEENT HEENT: Atraumatic, PERRL, EOMI - Neck Neck: Supple, no meningeal sign, No bony TTP - Respiratory Respiratory: No respiratory distress - Back Back: No CVA TTP, No spinal TTP - Derm Derm: Normal color, Warm and dry, No rash - Extremities Extremities: No deformity, No edema - Neuro Neuro: Alert and oriented X 3, supervisor statement clerks 2-12 intact, No motor deficit, No sensory deficit, Normal speech Eye Opening: Spontaneous Motor: Obeys Commands Verbal: Oriented GCS Score: 15 - Psych Psych: Normal mood, Normal affect Results - Vitals Vitals: Vital Signs - 24 hr 03/06/23 10:02 Temperature 36.8 C Heart Rate 101 H Respiratory 20 Rate Blood Pressure 103/53 L O2 Saturation 100 Oxygen O2 Source Room air - Labs Labs: Laboratory Tests 03/06/23 10:30 Urine Color RED/BLOODY Urine Clarity TURBID Urine pH 5.5 Ur Specific [place] >=1.030 H Urine Protein 100 H Urine Glucose (UA) NEGATIVE Urine Ketones TRACE Urine Occult Blood LARGE H Urine Nitrite NEGATIVE Urine Bilirubin NEGATIVE Urine Urobilinogen 1 (NORMAL) Ur Leukocyte Esterase NEGATIVE Urine RBC TNTC H Urine WBC 4-5 Ur Squamous Epith Cells FEW Squamous Urine Bacteria Few Ur Microscopic Review INDICATED Urine Culture Comments NOT INDICATED PD Medical Decision Making - ED course Complexity details: considered differential, d/w patient Reviewed Lab Results: We reviewed a urinalysis provided by the patient and this demonstrated the presence of concentrated urine with too numerous to count red blood cells. There were no significant white blood cells. There were a few bacteria, few squamous cells and the specimen did not make the grade for culture. My interpretation of this urinalysis is it likely represents an infection with hemorrhagic cystitis. My caution with this interpretation is that this could alternatively be related to a primary problem with the bladder including neoplasm. She will need follow-up for the hematuria. Today we will treat for urinary tract infection. ED course: 77-year-old female with urinary symptoms and hematuria is evaluated for urinary tract infection and appears to have significant hematuria without other evidence of infection. She is treated for infection and instructed to follow-up for resolution of her hematuria with concerns of a diagnosis different than hemorrhagic cystitis. Departure - Departure Disposition: 01 Home, Self Care Clinical Impression: Hematuria Qualifiers: Hematuria type: gross Qualified Code(s): R31.0 - Gross hematuria Urinary tract infection Qualifiers: Urinary tract infection type: acute cystitis Hematuria presence: with hematuria Qualified Code(s): N30.01 - Acute cystitis with hematuria Condition: Stable Instructions: ED Hematuria, ED UTI Cystitis Female Follow-Up: La Nena Meléndez MD [Provider Admit Priv/Credential] - Prescriptions: Sulfamethox/Trimeth 800/160 [Bactrim Ds] 1 tablet PO BID 7 Days #14 tablet Comments: Erica today the urine specimen we have demonstrates a significant amount of blood and this is likely secondary to hemorrhagic cystitis. There were not other signs of infection associated with this and a follow-up to resolution of the hematuria is indicated. The blood itself can cause these symptoms and the blood may not be related to infection but may be related to another problem in the bladder itself. I have E scribed Sept[facility] to the [facility] in [place]. My recommendation is to take this medication as prescribed and expect resolution of your symptoms. Follow-up with Dr. Meléndez for reevaluation of your urine to make certain that the bleeding has completely resolved. Discharge Date/Time: 03/06/23 11:13
== END 2023-03-06 11:13 | disposition home or self-care (01) ==
LOC: ED 09:54
DX: N39.0 Urinary tract infection, site not specified (principal); R31.0 Gross hematuria; G20 Parkinson's disease; Z79.899 Other long term (current) drug therapy
CPT/HCPCS: 81001; 81003; 87086; 99283; 99284